=== PATIENT | male | born 1980 | race Caucasian/White ===

== ENCOUNTER 2023-01-25 10:24 | Outpatient (CLI) | payer OTHER, SELFPAY | END 2023-01-25 10:25 | disposition home or self-care (01) | PROVIDERS: PCP Family Medicine; Visit Provider Family Medicine | DX: R10.9 Unspecified abdominal pain (principal) | CPT/HCPCS: 80053 ==

== ENCOUNTER 2025-08-31 13:57 | Outpatient (CLI) | payer OTHER, SELFPAY | END 2025-08-31 13:58 | disposition home or self-care (01) | PROVIDERS: PCP Family Medicine; Visit Provider Family Medicine | DX: R10.12 Left upper quadrant pain (principal) | CPT/HCPCS: 80053 ==